=== PATIENT | female | born 1960 | race Caucasian/White ===

== ENCOUNTER 2020-05-02 10:37 | Emergency (ER) | payer SELFPAY ==
[~2020-05-02] VITALS: Ht 160 cm; Wt 45.5 kg
[2020-05-02 10:40] VITALS: BP 157/79; Ht 160 cm; Wt 45.5 kg
[2020-05-02] MEDS ORDERED: ARTHROTEC EC 71 EACH PO (11:53)
[2020-05-02] MEDS ORDERED: PREDNISONE20 MG PO (11:53)
[2020-05-02] MEDS ORDERED: OXYCODONE HCL5 M1 PO (11:53)
== END 2020-05-02 12:09 | disposition home or self-care (01) ==
LOC: D.ER 10:37
DX: M06.9 Rheumatoid arthritis, unspecified (principal)